=== PATIENT | male | born 1945 | race Caucasian/White ===

== ENCOUNTER 2025-01-23 13:23 | Outpatient (AMB) | payer MEDICARE, OTHER, SELFPAY ==
--- NOTE | 2025-01-23 13:24 | AM.OFFWIN_ITS ---
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 - Symptoms began a week ago, initially i n the chest, then moved to the throat and sinuses. - Reports coughing without expectoration and white mucus in eyes at night. - He denies facial pain, headache, or fe erlinda reported. - Currently using loratadine for allergi es, but it is ineffective. - He feels run down and tired. - He denies fever or chills. - He denies abd pain, n/v/d, chest pain, or SOB. Physical Exam General: Cooperative, healthy appearing, comfortable, no acute distress and well developed Head: Normal to inspection Ears: Hearing grossly normal bilaterally. No tragus or mastoid tenderness noted. Hearing aids noted. Auditory canals clear bilaterally. TM's normal, not bulging. No fluid noted. Nose: Normal external nose present. Moist mucosa. Turbinates normal bilaterally, not boggy. Face and sinus: Tenderness to palpation of the frontal and maxillary sinuses bilaterally. Neck: Normal visual inspection and full ROM. No lymphadenopathy noted. Respiratory: Normal respiratory effort and able to speak in complete sentences. Clear to auscultation bilaterally Cardiovascular: Regular rate and rhythm. Normal S1 and S2 GI: Normal to inspection. Soft to palpation and nontender, nondistended. No guarding noted. Skin: No rashes or lesions noted Review of Systems Const All systems reviewed & are unremarkable except as noted in HPI and below Physical Exam Vital Signs: Last Vital Signs Temp 98.3 F 01/23/25 13:25 Pulse 72 01/23/25 13:25 BP 118/56 L 01/23/25 13:25 Pulse Ox 95 01/23/25 13:25 Oxygen Delivery Method Room Air 01/23/25 13:25 BMI result Body Mass Index 26.0 Assessment & Plan Assessment & Plan (1) Congestion of upper airway: Code(s): J98.8 - Other specified respiratory disorders Plan Most likely URI vs sinusitis vs allergic rhinitis vs URI Plan - Continue with loratadine - Tylenol or Motrin as needed for pain or fever - Flonase daily - Tylenol or Motrin as needed for pain or fever - Steam showers - Augmentin BID for 10 days Medications: New fluticasone propionate 50 mcg/actuation administer into each nostril 1 spray intranasal Q12H 16 grams 0RF amoxicillin-pot clavulanate 875-125 mg 1 tab PO Q12H 20 tabs 0RF 10 days Coding Level of Care Code Est Pt Level 3 (43471) Diagnoses Congestion of upper airway J98.8
[2025-01-23 13:25] VITALS: BP 118/56; PULSE 72; TEMP 36.8; O2SAT 95; BMI 26.0
== END 2025-01-23 13:57 | disposition home or self-care (01) ==
PROVIDERS: Visit Provider Physician Assistant Medical
DX: J98.8 Other specified respiratory disorders (principal)

== ENCOUNTER → 2025-01-23 13:23 | Outpatient (BNVA) | payer MEDICARE, OTHER, SELFPAY | PROVIDERS: Visit Provider Physician Assistant Medical | DX: J98.8 Other specified respiratory disorders (principal) | CPT/HCPCS: 99212 ==